=== PATIENT | male | born 1970 | race Caucasian/White ===

== ENCOUNTER 2023-01-23 07:20 | Outpatient (AMB) | payer OTHER, SELFPAY ==
--- NOTE | 2023-01-23 07:31 | MHC.PC.OV ---
Vital Signs 01/23/23 07:37 Height 5 ft 7 in Weight 328 lb BMI 51.4 BP 140/98 H Blood Pressure Location Lt brachial Position Sitting Pulse 86 Pulse Source Pulse Oximeter Pulse Oximetry (%) 98 Oxygen Delivery Method Room Air Intake Visit Reasons: 1 year physical Intake Note: Patient here for a physical exam Aquatics Specialist Required: No Accompanied by: Self / Same As Patient Allergies levofloxacin [Levaquin] Allergy (Intermediate, Verified 01/23/23 07:50) syncope Medication List - Last Reconciled 01/23/23 by Yadi Valencia MD omeprazole 40 mg PO QAM Tobacco use date assessed: 01/23/23 Dental Screening Dental Screen Date: 01/23/23 Did you have a dental visit in the last 12 months?: Yes Did you have a dental problem in the last 6 months where you did not have access to dental care?: No Was dental information given to patient?: Patient has dentist HPI HPI Comments History of Present Illness Details This is a 52-year-old male that comes for his physical exam. He is morbidly obese with a BMI of 51.4 and declines going to weight loss surgery. And will do a chart all of how with he eating. Has use PPIs for a long-term. Last colonoscopy was 2019 and was normal. No chest pain or shortness of breath. No change in bowel or bladder habits. Had flu vaccine already. [facility] Medical History (Updated 01/23/23 @ 08:01 by Yadi Valencia MD) Normal colonoscopy COVID-19 vaccine series completed Chronic GERD Morbid obesity with BMI of 45.0-49.9, adult Surgical History History of laparoscopic cholecystectomy History of hernia repair History of gastric bypass Family History (Updated 01/23/23 @ 07:54 by Yadi Valencia MD) Father Prostate cancer Mother No problems noted. Social History Housing: Apartment Alcohol intake: never Patient Tobacco Use Status: Never used Tobacco e-Cigarette/Vaping Use: Never Used Second Hand Smoke Exposure: No service: No Current occupational status: employed Current occupational exposures/hazards: Yes Cognitive needs: No Hearing needs: No Vision needs: Yes Questionnaire PHQ-9 Over the last 2 weeks, how often have you been bothered by any of the following problems? 1. Little interest or pleasure in doing things: not at all 2. Feeling down, depressed, or hopeless: not at all 3. Trouble falling or staying asleep, or sleeping too much: not at all 4. Feeling tired or having little energy: not at all 5. Poor appetite or overeating: not at all 6. Feeling bad about yourself - or that you are a failure or have let yourself or your family down: not at all 7. Trouble concentrating on things, such as reading the newspaper or watching television: not at all 8. Moving or speaking so slowly that other people could have noticed. Or the opposite - being so fidgety or restless that you have been moving around a lot more than usual: not at all 9. Thoughts that you would be better off or of hurting yourself in some way: not at all Total score: 0 Depression Screening Interpretation: Negative Depression Screening Done: Yes 44762 - PHQ-9 Billing: Yes Source: Developed by Drs. Elfego Sorensen, Shanna Menjivar, Marco A Marti and colleagues, with an educational kyra from [employer]. Thrive Questionnaire Date Thrive assessed: 01/23/23 I am a: Patient What is your living situation today?: I have a steady place to live Within the past 12 months, did the food you bought not last and you didn't have the money to get more?: Never true Within the past 12 months, did you worry whether your food would run out before you got money to buy more?: Never true Do you have trouble paying for medicines?: No Do you have trouble getting transportation to medical appointments?: No Do you have trouble paying your heating and electricity bill?: No Do you have trouble taking care of your child, family member or friend?: No Do you have trouble with day-to-day activities such as bathing, preparing meals, shopping, managing finances, etc.?: No Are you currently unemployed and looking for a job?: No Are you interested in more education?: No Please select the resources that you would like help with: None Currently or been in a relationship where the following occur: no concerns reported AUDIT C Alcohol Use Questionnaire (AUDIT-C) 1. How often do you have a drink containing alcohol?: Never Total Score: 0 PORTIA-7 AMB Questionnaire PORTIA-7 Date PORTIA - 7 assessed: 01/23/23 Feeling nervous, anxious, or on edge: 0 = Not at all Not being able to stop or control worryin = Not at all Worrying too much about different things: 0 = Not at all Trouble relaxin = Not at all Being so restless that it is hard to sit still: 0 = Not at all Becoming easily annoyed or irritable: 0 = Not at all Feeling afraid as if something awful might happen: 0 = Not at all Total PORTIA-7 score (0-4 normal; 5-9 mild; 10-14 moderate; 15-21 severe): 0 Source: Developed by Drs. Elfego Sorensen, Shanna Menjivar, Marco A Marti and colleagues, with an educational kyra from [employer]. PORTIA-7 Assessment Billing PORTIA-7 Assessment Tool: PORTIA-7 Assessment 35494 Review of Systems Const All systems reviewed & are unremarkable except as noted in HPI and below Eyes Reports no additional complaints, Denies change in vision and Denies other visual disturbances Card Denies chest pain at rest, Denies chest pain with activity, Denies edema, Denies irregular heart rhythm, Denies claudication, Denies dyspnea, Denies dyspnea on exertion, Denies orthopnea, Denies paroxysmal nocturnal dyspnea and Denies slow heart rate Resp Denies cough, Denies dyspnea and Denies dyspnea on exertion GI Denies abdominal pain, Denies change in bowel habits, Denies excessive flatus, Denies nausea and Denies vomiting Denies urinary hesitancy, Denies urinary incontinence and Denies urinary urgency Musc Denies abnormal gait, Denies atrophy, Denies deformity and Denies limited range of motion Skin/Breast Denies bleeding lesions, Denies changing lesions and Denies rash Neuro Denies abnormal gait, Denies behavioral changes, Denies confusion and Denies lack of coordination Psych Denies behavioral changes and Denies confusion Physical exam (Primary Care) Vital Signs: Last Vital Signs Pulse 86 01/23/23 07:37 BP 140/98 H 01/23/23 07:37 Pulse Ox 98 01/23/23 07:37 Oxygen Delivery Method Room Air 01/23/23 07:37 BMI result Body Mass Index 51.4 Tobacco/Smoking Status: Tobacco use Status Tobacco use date assessed 01/23/23 01/23/23 07:40 Patient Tobacco Use Status Never used Tobacco 01/23/23 07:31 e-Cigarette/Vaping Use Never Used 01/23/23 07:31 PHQ-9: PHQ-9 Score PHQ-9: Total score 0 01/23/23 07:40 Depression Screening Interpretation: Negative Thrive Assessment: Date of Thrive Assessment Date Thrive assessed 01/23/23 01/23/23 07:40 Currently or been in a relationship where the following occur: no concerns reported Const General: No confusion Orientation/consciousness: patient oriented x3 and No confusion HENMT Head: Yes normal to inspection, Yes normocephalic and Yes atraumatic Ears: external ears normal Eyes General: appearance normal, both eyes and all related structures Eyelids: Yes eyelids normal Conjunctivae: conjunctivae normal Neck Neck: Yes normal visual inspection and Yes supple Resp Effort & Inspection: normal respiratory effort Auscultation: clear to auscultation bilaterally Cardio Jugular venous distension: no JVD Rate: regular rate Rhythm: regular rhythm Heart sounds: S1 normal heart sound present and S2 normal heart sound present GI Inspection: Yes normal to inspection Palpation (GI): Soft to palpation and nontender Auscultation: normal bowel sounds Skin General skin exam: no rashes or lesions noted Neuro General: patient oriented x3, no focal motor deficits and No confusion Extrem General: Yes full ROM Psych Appearance: grossly normal Assessment and Plan Assessment & Plan (1) Encounter for physical examination: Code(s): Z00.00 - Encounter for general adult medical examination without abnormal findings Plan: Repeat in a year. (2) Obesity, morbid, BMI 50 or higher: Code(s): E66.01 - Morbid (severe) obesity due to excess calories Plan: Start diet and exercise. BMI goal is less than 30. Orders: Orders Comprehensive [place]. Panel Fast Today Z00.00 - Encounter for general adult medical examination without abnormal findings PSA,Total (Free>4and<10) Today Z12.5 - Encounter for screening for malignant neoplasm of prostate Lipid Panel Today Z00.00 - Encounter for general adult medical examination without abnormal findings Magnesium Today Z79.899 - Other long term care administrator (current) drug therapy Coding Level of Care Code Est Pt Prev Care 40-64y(60830) Diagnoses Encounter for physical examination Z00.00 Obesity, morbid, BMI 50 or higher E66.01 Additional Codes PORTIA-7 Assessment Billing - PORTIA-7 Assessment Tool: PORTIA-7 Assessment 94677 ([id number]) Time Spent (min) 31
[2023-01-23 07:37] VITALS: BP 140/98; PULSE 86; O2SAT 98; BMI 51.4
== END 2023-01-23 08:01 | disposition home or self-care (01) ==
PROVIDERS: Visit Provider Internal Medicine
DX: Z00.00 Encounter for general adult medical examination without abnormal findings (principal); E66.01 Morbid (severe) obesity due to excess calories; Z68.43 Body mass index [BMI] 50.0-59.9, adult
CPT/HCPCS: 99396

== ENCOUNTER 2023-03-16 07:33 | Outpatient (AMB) | payer OTHER, SELFPAY ==
[2023-03-16 07:34] VITALS: BP 160/100; BMI 51.2
--- NOTE | 2023-03-16 07:34 | MHC.PC.OV ---
Vital Signs 03/16/23 07:34 03/16/23 08:38 Height 5 ft 7 in Weight 327 lb BMI 51.2 BP 160/100 H 160/100 H Blood Pressure Location Lt brachial Lt brachial Position Sitting Sitting Intake Visit Reasons: Swollen Legs Intake Note: Patient here for swollen legs Roller Painter Required: No Accompanied by: Self / Same As Patient Allergies levofloxacin [Levaquin] Allergy (Intermediate, Verified 03/16/23 07:41) syncope Medication List - Last Reconciled 03/16/23 by Yadi Valencia MD omeprazole 40 mg PO QAM Tobacco use date assessed: 03/16/23 Dental Screening Dental Screen Date: 03/16/23 Did you have a dental visit in the last 12 months?: Yes Did you have a dental problem in the last 6 months where you did not have access to dental care?: No Was dental information given to patient?: Patient has dentist HPI HPI Comments History of Present Illness Details This is a 52-year-old male with hypertension, morbid obesity and chronic GERD that complains of bilateral leg edema that has been present for over 2 weeks associated with a maculopapular rash and some redness. He has had this rash before and happens in the winter. Went to see Dermatology for it and was diagnosed with eczema. No fever. Also complains of epistaxis that happens for the 1st time this summer and saw ENT which did not find any significant abnormality. Restarted epistaxis for the past week and has had some headache in the right side of the head involving the eye. No neurological deficit. Blood pressure elevated and I will start him on hydrochlorothiazide. Blood pressure will be recheck in 3 weeks by nurse navigator. He is morbidly obese with a BMI of 51.2 and was advised to do diet and exercise to reach BMI goal less than 30. GERD stable with PPIs. [facility] Medical History (Updated 03/16/23 @ 08:00 by Yadi Valencia MD) Normal colonoscopy COVID-19 vaccine series completed Chronic GERD Morbid obesity with BMI of 45.0-49.9, adult Surgical History History of laparoscopic cholecystectomy History of hernia repair History of gastric bypass Family History Father Prostate cancer Mother No problems noted. Social History Housing: Apartment Alcohol intake: never Patient Tobacco Use Status: Never used Tobacco e-Cigarette/Vaping Use: Never Used Second Hand Smoke Exposure: No service: No Current occupational status: employed Current occupational exposures/hazards: Yes Cognitive needs: No Hearing needs: No Vision needs: Yes Questionnaire PHQ-9 Over the last 2 weeks, how often have you been bothered by any of the following problems? 1. Little interest or pleasure in doing things: not at all 2. Feeling down, depressed, or hopeless: not at all 3. Trouble falling or staying asleep, or sleeping too much: not at all 4. Feeling tired or having little energy: not at all 5. Poor appetite or overeating: not at all 6. Feeling bad about yourself - or that you are a failure or have let yourself or your family down: not at all 7. Trouble concentrating on things, such as reading the newspaper or watching television: not at all 8. Moving or speaking so slowly that other people could have noticed. Or the opposite - being so fidgety or restless that you have been moving around a lot more than usual: not at all 9. Thoughts that you would be better off or of hurting yourself in some way: not at all Total score: 0 Depression Screening Interpretation: Negative Depression Screening Done: Yes 00591 - PHQ-9 Billing: Yes Source: Developed by Drs. Elfego Sorensen, Shanna Menjivar, Marco A Marti and colleagues, with an educational kyra from [employer]. Thrive Questionnaire Date Thrive assessed: 03/16/23 I am a: Patient What is your living situation today?: I have a steady place to live Within the past 12 months, did the food you bought not last and you didn't have the money to get more?: Never true Within the past 12 months, did you worry whether your food would run out before you got money to buy more?: Never true Do you have trouble paying for medicines?: No Do you have trouble getting transportation to medical appointments?: No Do you have trouble paying your heating and electricity bill?: No Do you have trouble taking care of your child, family member or friend?: No Do you have trouble with day-to-day activities such as bathing, preparing meals, shopping, managing finances, etc.?: No Are you currently unemployed and looking for a job?: No Are you interested in more education?: No Please select the resources that you would like help with: None Currently or been in a relationship where the following occur: no concerns reported THRIVE Score: 0 AUDIT C Alcohol Use Questionnaire (AUDIT-C) 1. How often do you have a drink containing alcohol?: Never Total Score: 0 PORTIA-7 AMB Questionnaire PORTIA-7 Date PORTIA - 7 assessed: 03/16/23 Feeling nervous, anxious, or on edge: 0 = Not at all Not being able to stop or control worryin = Not at all Worrying too much about different things: 0 = Not at all Trouble relaxin = Not at all Being so restless that it is hard to sit still: 0 = Not at all Becoming easily annoyed or irritable: 0 = Not at all Feeling afraid as if something awful might happen: 0 = Not at all Total PORTIA-7 score (0-4 normal; 5-9 mild; 10-14 moderate; 15-21 severe): 0 Source: Developed by Drs. Elfego Sorensen, Shanna Menjivar, Marco A Marti and colleagues, with an educational kyra from [employer]. PORTIA-7 Assessment Billing PORTIA-7 Assessment Tool: PORTIA-7 Assessment 20716 Review of Systems Const All systems reviewed & are unremarkable except as noted in HPI and below Eyes Reports no additional complaints, Denies change in vision and Denies other visual disturbances ENT Reports epistaxis Card Denies chest pain at rest, Denies chest pain with activity, Denies edema, Denies irregular heart rhythm, Denies claudication, Denies dyspnea, Denies dyspnea on exertion, Denies orthopnea, Denies paroxysmal nocturnal dyspnea and Denies slow heart rate Resp Denies cough, Denies dyspnea and Denies dyspnea on exertion GI Denies abdominal pain, Denies change in bowel habits, Denies excessive flatus, Denies nausea and Denies vomiting Denies urinary hesitancy, Denies urinary incontinence and Denies urinary urgency Musc Denies abnormal gait, Denies atrophy, Denies deformity, Reports joint swelling and Denies limited range of motion Skin/Breast Denies bleeding lesions, Denies changing lesions and Reports erythema Neuro Denies abnormal gait, Denies behavioral changes and Denies lack of coordination Psych Denies behavioral changes Physical exam (Primary Care) Vital Signs: Last Vital Signs BP 160/100 H 03/16/23 08:38 BMI result Body Mass Index 51.2 Tobacco/Smoking Status: Tobacco use Status Tobacco use date assessed 03/16/23 03/16/23 07:40 Patient Tobacco Use Status Never used Tobacco 03/16/23 07:40 e-Cigarette/Vaping Use Never Used 03/16/23 07:40 PHQ-9: PHQ-9 Score PHQ-9: Total score 0 03/16/23 08:40 Depression Screening Interpretation: Negative Thrive Assessment: Date of Thrive Assessment Date Thrive assessed 03/16/23 03/16/23 07:40 Currently or been in a relationship where the following occur: no concerns reported Eyes General: appearance normal, both eyes and all related structures Eyelids: Yes eyelids normal Conjunctivae: conjunctivae normal Neck Neck: Yes normal visual inspection and Yes supple Resp Effort & Inspection: normal respiratory effort Auscultation: clear to auscultation bilaterally Cardio Jugular venous distension: no JVD Rate: regular rate Rhythm: regular rhythm Heart sounds: S1 normal heart sound present and S2 normal heart sound present Skin Other: Maculopapular pruritic rash in bilateral lower limbs Extrem General: Yes full ROM Right lower extremity: lower leg Details: pitting edema Details: 1+ Left lower extremity: lower leg Details: pitting edema Details: 1+ Assessment and Plan Assessment & Plan (1) Essential hypertension: Code(s): I10 - Essential (primary) hypertension Plan: Start hydrochlorothiazide. Blood pressure goal is equal or less than 130/80. Recheck blood pressure with nurse navigator in 3 weeks. (2) Morbid obesity with BMI of 50.0-59.9, adult: Code(s): E66.01 - Morbid (severe) obesity due to excess calories; Z68.43 - Body mass index [BMI] 50.0-59.9, adult Plan: Start diet and exercise. BMI goal is less than 30. (3) Chronic GERD: Code(s): K21.9 - Gastro-esophageal reflux disease without esophagitis Plan: Continue PPIs. (4) Leg edema: Code(s): R60.0 - Localized edema Plan: Ultrasound venous duplex ordered to rule out DVT. Labs ordered. Orders: Orders US venous duplex LE BI Today M79.604 - Pain in right leg, M79.605 - Pain in left leg Complete Blood Count Auto Diff Today R04.0 - Epistaxis Comprehensive Met. Panel Today R60.0 - Localized edema NT-proBNP Today R60.0 - Localized edema Medications: New hydrochlorothiazide 25 mg PO DAILY 90 days 90 tabs 0RF I10 - Essential (primary) hypertension cephalexin 500 mg PO BID 10 days 20 tabs 0RF L03.90 - Cellulitis, unspecified betamethasone dipropionate 0.05% 1 appl topical BID 2 weeks PRN 45 grams 0RF skin irritation Coding Level of Care Code Est Pt Level 4 (99748) Diagnoses Essential hypertension I10 Morbid obesity with BMI of 50.0-59.9, adult E66.01; Z68.43 Chronic GERD K21.9 Leg edema R60.0 Additional Codes PORTIA-7 Assessment Billing - PORTIA-7 Assessment Tool: PORTIA-7 Assessment 27060 ([id number]) Time Spent (min) 24
[2023-03-16 08:38] VITALS: BP 160/100
== END 2023-03-16 08:05 | disposition home or self-care (01) ==
PROVIDERS: PCP Internal Medicine; Visit Provider Internal Medicine
DX: I10 Essential (primary) hypertension (principal); E66.01 Morbid (severe) obesity due to excess calories; Z68.43 Body mass index [BMI] 50.0-59.9, adult; K21.9 Gastro-esophageal reflux disease without esophagitis; R60.0 Localized edema
CPT/HCPCS: 99214

== ENCOUNTER 2023-03-16 08:17 | Outpatient (REF) | payer OTHER, SELFPAY ==
--- NOTE | ~2023-03-16 | US_ITS ---
EXAMINATION: US VENOUS ULTRASOUND WITH DOPPLER LOWER EXTREMITY, BILATERAL CLINICAL INFORMATION: Pain in leg. Evaluate for deep vein thrombosis. COMPARISON: None available. TECHNIQUE: Ultrasound of the deep veins is performed from the hip to the calf with compression sonography and color and pulse Doppler assessment. Spectral analysis with color-flow imaging is performed. FINDINGS: The common femoral vein is compressible and exhibits a normal phasic waveform, bilaterally; this suggests that the iliac veins are widely patent above. Within each proximal thigh, the visualized profunda femoris vein is patent. The visualized greater saphenous veins and saphenofemoral junctions are normal. Superficial femoral vein is patent in the proximal, mid and distal aspect of each thigh. Popliteal veins are normal to the level of the trifurcation, bilaterally, and the visualized posterior tibial veins are patent. There is edema of subcutaneous tissues of the calves. The right peroneal vein is not adequately visualized for diagnostic assessment. The left peroneal vein is grossly normal. At the left popliteal fossa, there is a 4.1 x 1.2 x 3.3 cm Easton's cyst. US/US venous duplex LE BI IMPRESSION: * No evidence of deep vein thrombosis in either lower extremity. * There is edema of subcutaneous tissues of both lower extremities. * At the left popliteal fossa, there is a 4.1 x 1.2 x 3.3 cm Easton's cyst.
== END 2023-03-16 08:18 | disposition home or self-care (01) ==
LOC: HO.US 08:17
PROVIDERS: PCP Internal Medicine; Visit Provider Internal Medicine
DX: M79.604 Pain in right leg (principal); M79.605 Pain in left leg
CPT/HCPCS: 93970

== ENCOUNTER 2024-03-19 07:47 | Outpatient (AMB) | payer OTHER, SELFPAY ==
--- NOTE | 2024-03-19 08:03 | MHC.PC.OV ---
Vital Signs 03/19/24 08:04 Height 5 ft 7 in Weight 303 lb BMI 47.5 BP 136/82 Blood Pressure Location Lt brachial Position Sitting Intake Visit Reasons: Annual Exam Intake Note: Patient here for an annual physical exam [employer] Required: No Accompanied by: Self / Same As Patient Allergies levofloxacin [Levaquin] Allergy (Intermediate, Verified 03/19/24 08:24) syncope Medication List - Last Reconciled 03/19/24 by Yadi Valencia MD hydrochlorothiazide 25 mg PO DAILY 90 days omeprazole 40 mg PO QAM Tobacco use date assessed: 03/19/24 Dental Screening Dental Screen Date: 03/19/24 Did you have a dental visit in the last 12 months?: Yes Did you have a dental problem in the last 6 months where you did not have access to dental care?: No Was dental information given to patient?: Patient has dentist HPI HPI Comments History of Present Illness Details The patient is a 53-year-old male presenting for his annual physical examination. The patient has a history of obesity and essential hypertension. Last year, he weighed 327 pounds in February and has since lost weight, now weighing 303 pounds, an intentional change due to dietary modifications advised by a dietitian. The patient is currently on 25 mg of hydrochlorothiazide for blood pressure management. No new symptoms associated with hypertension were reported. He was prescribed omeprazole for gastroesophageal reflux disease. The patient also reported allergies to Levofloxacin. There were no reports of chest pain, shortness of breath, or changes in bowel habits. The patient's last colonoscopy in March 2019 was normal, with follow-up recommended for 2029. There is a family history of prostate cancer in the father and possible maternal hypertension. - Patient received the SARS-CoV-2 vaccine, pneumonia vaccine, and Tdap vaccine, with the next due in 2030. - Most recent COVID-19 booster administered in October alongside the influenza vaccination. - Patient adheres to dietary advice from a dietitian, with significant weight loss noted. - Last colonoscopy was unremarkable, scheduled to repeat in 2029. [facility] Medical History (Updated 03/19/24 @ 08:39 by Yadi Valencia MD) Morbid obesity with BMI of 45.0-49.9, adult Morbid obesity with BMI of 50.0-59.9, adult Obesity, morbid, BMI 50 or higher Normal colonoscopy COVID-19 vaccine series completed Chronic GERD Surgical History History of laparoscopic cholecystectomy History of hernia repair History of gastric bypass Family History (Updated 03/19/24 @ 08:29 by Yadi Valencia MD) Father Prostate cancer Pacemaker Mother Essential hypertension Social History Housing: Apartment Alcohol intake: never Patient Tobacco Use Status: Never used Tobacco e-Cigarette/Vaping Use: Never Used Second Hand Smoke Exposure: No service: No Current occupational status: employed Current occupational exposures/hazards: Yes Cognitive needs: No Hearing needs: No Vision needs: Yes Questionnaire PHQ-9 Over the last 2 weeks, how often have you been bothered by any of the following problems? 1. Little interest or pleasure in doing things: not at all 2. Feeling down, depressed, or hopeless: not at all 3. Trouble falling or staying asleep, or sleeping too much: not at all 4. Feeling tired or having little energy: not at all 5. Poor appetite or overeating: not at all 6. Feeling bad about yourself - or that you are a failure or have let yourself or your family down: not at all 7. Trouble concentrating on things, such as reading the newspaper or watching television: not at all 8. Moving or speaking so slowly that other people could have noticed. Or the opposite - being so fidgety or restless that you have been moving around a lot more than usual: not at all 9. Thoughts that you would be better off or of hurting yourself in some way: not at all Total score: 0 Depression Screening Interpretation: Negative Depression Screening Done: Yes 89952 - PHQ-9 Billing: Yes Source: Developed by Drs. Elfego Sorensen, Shanna Menjivar, Marco A Marti and colleagues, with an educational kyra from [employer]. Thrive Questionnaire Date Thrive assessed: 03/19/24 I am a: Patient What is your living situation today?: I have a steady place to live Within the past 12 months, did the food you bought not last and you didn't have the money to get more?: Never true Within the past 12 months, did you worry whether your food would run out before you got money to buy more?: Never true Do you have trouble paying for medicines?: No Do you have trouble getting transportation to medical appointments?: No Do you have trouble paying your heating and electricity bill?: No Do you have trouble taking care of your child, family member or friend?: No Do you have trouble with day-to-day activities such as bathing, preparing meals, shopping, managing finances, etc.?: No Are you currently unemployed and looking for a job?: No Are you interested in more education?: No Please select the resources that you would like help with: None Currently or been in a relationship where the following occur: No concerns reported THRIVE Score: 0 AUDIT C Alcohol Use Questionnaire (AUDIT-C) 1. How often do you have a drink containing alcohol?: Never Total Score: 0 Score Reviewed/Action Taken: No PORTIA-7 AMB Questionnaire PORTIA-7 Date PORTIA - 7 assessed: 03/19/24 Feeling nervous, anxious, or on edge: 0 = Not at all Not being able to stop or control worryin = Not at all Worrying too much about different things: 0 = Not at all Trouble relaxin = Not at all Being so restless that it is hard to sit still: 0 = Not at all Becoming easily annoyed or irritable: 0 = Not at all Feeling afraid as if something awful might happen: 0 = Not at all Total PORTIA-7 score (0-4 normal; 5-9 mild; 10-14 moderate; 15-21 severe): 0 Source: Developed by Drs. Elfego Sorensen, Shanna Menjivar, Marco A Marti and colleagues, with an educational kyra from [employer]. PORTIA-7 Assessment Billing PORTIA-7 Assessment Tool: PORTIA-7 Assessment 58047 Review of Systems Const All systems reviewed & are unremarkable except as noted in HPI and below Card Denies chest pain at rest, Denies chest pain with activity, Denies edema, Denies irregular heart rhythm, Denies claudication, Denies dyspnea, Denies dyspnea on exertion, Denies orthopnea, Denies paroxysmal nocturnal dyspnea and Denies slow heart rate Resp Denies cough, Denies dyspnea and Denies dyspnea on exertion GI Denies abdominal pain, Denies change in bowel habits, Denies excessive flatus, Denies nausea and Denies vomiting Denies urinary hesitancy, Denies urinary incontinence and Denies urinary urgency Musc Denies abnormal gait, Denies atrophy, Denies deformity and Denies limited range of motion Skin/Breast Denies bleeding lesions, Denies changing lesions and Denies rash Neuro Denies abnormal gait and Denies lack of coordination Physical exam (Primary Care) Vital Signs: Last Vital Signs BP 136/82 03/19/24 08:04 BMI result Body Mass Index 47.5 BMI Assessment/Plan discussion: High BMI High, discussed plan: lifestyle, weight reduction, dietary and physical activity Tobacco/Smoking Status: Tobacco use Status Tobacco use date assessed 03/19/24 03/19/24 08:14 Patient Tobacco Use Status Never used Tobacco 03/19/24 08:06 e-Cigarette/Vaping Use Never Used 03/19/24 08:06 PHQ-9: PHQ-9 Score PHQ-9: Total score 0 03/19/24 08:14 Depression Screening Interpretation: Negative Thrive Assessment: Date of Thrive Assessment Date Thrive assessed 03/19/24 03/19/24 08:14 Currently or been in a relationship where the following occur: No concerns reported [facility] Head: Yes normal to inspection, Yes normocephalic and Yes atraumatic Ears: external ears normal Eyes General: appearance normal, both eyes and all related structures Eyelids: Yes eyelids normal Conjunctivae: conjunctivae normal Neck Neck: Yes normal visual inspection and Yes supple Resp Effort & Inspection: normal respiratory effort Auscultation: clear to auscultation bilaterally Cardio Jugular venous distension: no JVD Rate: regular rate Rhythm: regular rhythm Heart sounds: S1 normal heart sound present and S2 normal heart sound present GI Inspection: Yes normal to inspection Palpation (GI): Soft to palpation and nontender Auscultation: normal bowel sounds Skin General skin exam: no rashes or lesions noted Neuro General: no focal motor deficits Extrem General: Yes full ROM Psych Appearance: grossly normal Coding Level of Care Code Est Pt Prev Care 40-64y(98645) Diagnoses Encounter for physical examination Z00.00 Morbid obesity with BMI of 45.0-49.9, adult E66.01; Z68.42 Additional Codes PHQ-9 - 40924 - PHQ-9 Billing: Yes ([id number]) PORTIA-7 Assessment Billing - PORTIA-7 Assessment Tool: PORTIA-7 Assessment 84746 ([id number]) Time Spent (min) 30 Assessment & Plan Assessment & Plan (1) Encounter for physical examination: Code(s): Z00.00 - Encounter for general adult medical examination without abnormal findings Category: Medical (2) Morbid obesity with BMI of 45.0-49.9, adult: Code(s): E66.01 - Morbid (severe) obesity due to excess calories; Z68.42 - Body mass index [BMI] 45.0-49.9, adult Category: Medical Plan - Continue lifestyle modifications to manage obesity. - Continue hydrochlorothiazide 25 mg for essential hypertension. - Continue omeprazole for gastroesophageal reflux disease. - Monitor weight and blood pressure annually and encourage ongoing dietary advice adherence. - Schedule eight-hour fasting blood test to recheck cholesterol and general health indicators. Patient was informed and verbally consented to the use of an ambient scribe for clinic note documentation during this visit. Orders: Orders Comprehensive [facility] Panel Fast Today Z00.00 - Encounter for general adult medical examination without abnormal findings Lipid Panel Today Z00.00 - Encounter for general adult medical examination without abnormal findings
[2024-03-19 08:04] VITALS: BP 136/82; BMI 47.5
== END 2024-03-19 08:35 | disposition home or self-care (01) ==
PROVIDERS: PCP Internal Medicine; Visit Provider Internal Medicine
DX: Z00.00 Encounter for general adult medical examination without abnormal findings (principal); E66.01 Morbid (severe) obesity due to excess calories; Z68.42 Body mass index [BMI] 45.0-49.9, adult

== ENCOUNTER → 2024-03-19 07:47 | Outpatient (BNVA) | payer OTHER, SELFPAY | PROVIDERS: PCP Internal Medicine; Visit Provider Internal Medicine | DX: Z00.00 Encounter for general adult medical examination without abnormal findings (principal); E66.01 Morbid (severe) obesity due to excess calories; Z68.42 Body mass index [BMI] 45.0-49.9, adult; I10 Essential (primary) hypertension; K21.9 Gastro-esophageal reflux disease without esophagitis; Z79.899 Other long term (current) drug therapy | CPT/HCPCS: 96127 ==